=== PATIENT | male | born 1955 ===

== ENCOUNTER → 2018-04-14 19:12 | Outpatient (REF) | payer OTHER, MEDICAID, SELFPAY | LOC: LAB 19:12 | PROVIDERS: Visit Provider Physician Assistant | DX: D48.5 Neoplasm of uncertain behavior of skin (principal) | CPT/HCPCS: 88305; 88312 ==

== ENCOUNTER → 2018-05-25 19:34 | Outpatient (REF) | payer OTHER, MEDICAID, SELFPAY | LOC: LAB 19:34 | PROVIDERS: Visit Provider Family Medicine Geriatric Medicine | DX: D48.5 Neoplasm of uncertain behavior of skin (principal) | CPT/HCPCS: 88304 ==